=== PATIENT | female | born 1985 | race American Indian/Alaskan Native ===

== ENCOUNTER 2018-05-12 14:43 | Observation (INO) | payer MEDICAID ==
[2018-05-12] MEDS ORDERED: LACTATED RINGERS 1,000 ML IV ONE (15:00)
[2018-05-12] MEDS ORDERED: TYLENOL PO ONE (15:00)
[2018-05-12] MEDS ORDERED: BRETHINE SUB-Q ONE ×2 (17:00→17:19)
[2018-05-12 17:08] LABS: Blood,Urine Negative (Negative); Color,Urine Straw (Yellow); Mucus,Urine Few /HPF; Protein,Urine <15 mg/dL mg/dL (Negative); Urobilinogen,Urine < 2.0 mg/dL (<2.0); WBC,Urine < 1.0 /HPF (0.0-6.0)
[2018-05-12] MEDS ORDERED: LACTATED RINGERS 1,000 ML IV SCH ×2 (18:00)
[2018-05-12] MEDS ORDERED: CELESTONE SOLUSPAN IM ONE (18:00)
--- NOTE | 2018-05-12 18:08 | History and Physical Report ---
History of Present Illness Date of admission: 05/12/18 17:49 Chief complaint: contractions History of delivery 30 weeks, PPROM 2005 History of present illness: 32y 31 2/7wks transferred from clinic due to contraction. She has a history of rupture of membranes and delivery at 30 weeks in 2005. Today she denies loss of fluid, vaginal bleeding and has good movement. Past History - Obstetrical History : 5 Medications and Allergies Allergies Allergy/AdvReac Type Severity Reaction Status Date / Time No Known Allergies Allergy Verified 05/12/18 14:51 Home Medications Medication Instructions Recorded Confirmed Last Taken Type Ferrous Sulfate [Feosol] 325 mg PO QDAY 05/12/18 05/12/18 05/12/18 09:00 History 1 Vit-Fe Fumar-FA [ 1 tab PO QDAY 05/12/18 05/12/18 05/12/18 09: 00 History Vitamin] 1 Progesterone [Progesterone in Oil] 50 mg IM QWEEK 05/12/18 05/12/18 05/06/18 History glyBURIDE [Diabeta] 2.5 mg PO DAILY 05/12/18 05/12/18 05/11/18 21:00 History 1 Active Meds: Active Medications Betamethasone Acet/Betameth SodPhos (Celestone Soluspan) 12 mg IM ONCE ONE Stop: 05/13/18 16:01 Lactated Ringer's (Lactated Ringers) 1,000 mls @ 125 mls/hr IV DIRECT PAULINO Lactated Ringer's (Lactated Ringers) 1,000 mls @ 125 mls/hr IV DIRECT PAULINO Lactated Ringer's (Lactated Ringers) 500 mls @ 999 mls/hr IV BOLUS ONE Stop: 05/12/18 19:30 - Vital Signs Vital signs: Vital Signs Pulse BP Pulse Ox 97 H 129/69 99 05/12/18 15:05 05/12/18 15:05 05/12/18 15:05 Temp Pulse Resp BP Pulse Ox 98 F 123 H 24 126/72 98 05/12/18 17:32 05/12/18 18:03 05/12/18 17:32 05/12/18 17:32 05/12/18 18:03 Results All other labs normal. Assessment and Plan - Patient Problems (1) contractions Current Visit: Yes Status: Acute (2) 31 weeks gestation of Current Visit: Yes Status: Acute (3) History of delivery Current Visit: Yes Status: Acute
[2018-05-12] MEDS ORDERED: LACTATED RINGERS 500 ML IV ONE (19:00)
[2018-05-12] MEDS: PEPCID PO SCH (20:34)
--- NOTE | 2018-05-13 08:50 | Progress Note ---
Assessment and Plan A: 32-year-old at 32+6 weeks by LMP 07/02/18 here for contractions -Cat 1 tracing Issues: -Hx of PTD at 32 wks -On 17-HP, next dose due today -GDM 2 on glyburide -s/p BMZ # 1 (next due today) -FFn obtained in office yesterday (no result yet) -Chart history of vasa previa, recorded as resolved at 27 weeks P: -Sono for cervical length and re-assess vasa previa -Start sliding scale insulin and her Glyburide -Complete steroid shot -17 hp shot today -Disposition after results available - Patient Problems (1) 32 weeks gestation of Current Visit: Yes Status: Acute (2) History of delivery Current Visit: Yes Status: Acute (3) contractions Current Visit: Yes Status: Acute (4) Gestational diabetes mellitus (GDM) affecting Current Visit: Yes Status: Acute Subjective - Subjective Date of service: 05/13/18 Principal diagnosis: IUP at 32+6 wks, PTL Interval history: Assumed care of above. She is a 32 y/o at 32+6 wks admitted for contractions. She's currently daniel on the monitor and can feel them, no vaginal bleeding no loss of fluid plus movement. Patient reports: new complaints, movement normal, contractions, no loss of fluid, no vaginal bleeding Objective - Vital Signs Vital Signs: Vital Signs - 12hr 05/12/18 05/12/18 05/12/18 20:49 20:54 20:59 Temperature Pulse Rate 100 H 112 H 117 H Respiratory Rate Blood Pressure Blood Pressure [Right] O2 Sat by Pulse 98 99 98 Oximetry 05/12/18 05/12/18 05/12/18 21:04 21:11 21:16 Temperature Pulse Rate 111 H 115 H 113 H Respiratory Rate Blood Pressure Blood Pressure [Right] O2 Sat by Pulse 100 98 99 Oximetry 05/12/18 05/12/18 05/12/18 21:21 21:26 21:31 Temperature Pulse Rate 104 H 104 H 110 H Respiratory Rate Blood Pressure Blood Pressure [Right] O2 Sat by Pulse 98 99 97 Oximetry 05/12/18 05/12/18 05/12/18 21:36 21:41 21:46 Temperature Pulse Rate 110 H 110 H 109 H Respiratory Rate Blood Pressure Blood Pressure [Right] O2 Sat by Pulse 97 97 99 Oximetry 05/12/18 05/12/18 05/12/18 21:51 21:56 22:01 Temperature Pulse Rate 110 H 113 H 109 H Respiratory Rate Blood Pressure Blood Pressure [Right] O2 Sat by Pulse 97 96 98 Oximetry 05/12/18 05/12/18 05/12/18 22:06 22:11 22:16 Temperature Pulse Rate 113 H 111 H 114 H Respiratory Rate Blood Pressure Blood Pressure [Right] O2 Sat by Pulse 96 97 98 Oximetry 05/12/18 05/12/18 05/12/18 22:21 22:26 22:38 Temperature Pulse Rate 113 H 118 H Respiratory Rate Blood Pressure Blood Pressure [Right] O2 Sat by Pulse 96 97 76 L Oximetry 05/12/18 05/12/18 05/12/18 22:43 22:48 22:53 Temperature Pulse Rate 103 H 109 H 106 H Respiratory Rate Blood Pressure Blood Pressure [Right] O2 Sat by Pulse 100 100 100 Oximetry 05/12/18 05/12/18 05/12/18 22:58 23:03 23:08 Temperature Pulse Rate 106 H 113 H 109 H Respiratory Rate Blood Pressure Blood Pressure [Right] O2 Sat by Pulse 99 98 100 Oximetry 05/12/18 05/12/18 05/12/18 23:13 23:18 23:23 Temperature Pulse Rate 111 H 113 H 104 H Respiratory Rate Blood Pressure Blood Pressure [Right] O2 Sat by Pulse 98 99 99 Oximetry 05/12/18 05/12/18 05/12/18 23:27 23:28 23:33 Temperature Pulse Rate 104 H 113 H 108 H Respiratory Rate Blood Pressure 121/72 Blood Pressure [Right] O2 Sat by Pulse 99 99 Oximetry 05/12/18 05/12/18 05/12/18 23:38 23:43 23:48 Temperature Pulse Rate 107 H 106 H 103 H Respiratory Rate Blood Pressure Blood Pressure [Right] O2 Sat by Pulse 99 98 98 Oximetry 05/12/18 05/12/18 05/13/18 23:53 23:58 00:03 Temperature Pulse Rate 103 H 104 H 108 H Respiratory Rate Blood Pressure Blood Pressure [Right] O2 Sat by Pulse 98 98 98 Oximetry 05/13/18 05/13/18 05/13/18 00:08 00:13 00:18 Temperature Pulse Rate 108 H 103 H 109 H Respiratory Rate Blood Pressure Blood Pressure [Right] O2 Sat by Pulse 97 98 97 Oximetry 05/13/18 05/13/18 05/13/18 00:23 00:28 01:15 Temperature Pulse Rate 114 H 100 H 105 H Respiratory Rate Blood Pressure Blood Pressure [Right] O2 Sat by Pulse 97 98 98 Oximetry 05/13/18 05/13/18 05/13/18 01:20 01:25 01:30 Temperature Pulse Rate 112 H 106 H 106 H Respiratory Rate Blood Pressure Blood Pressure [Right] O2 Sat by Pulse 99 99 98 Oximetry 05/13/18 05/13/18 05/13/18 01:35 01:40 01:45 Temperature Pulse Rate 115 H 115 H 114 H Respiratory Rate Blood Pressure Blood Pressure [Right] O2 Sat by Pulse 98 99 99 Oximetry 05/13/18 05/13/18 05/13/18 01:50 01:55 02:00 Temperature Pulse Rate 114 H 101 H 105 H Respiratory Rate Blood Pressure Blood Pressure [Right] O2 Sat by Pulse 99 99 99 Oximetry 05/13/18 05/13/18 05/13/18 02:05 02:10 02:15 Temperature Pulse Rate 105 H 110 H 109 H Respiratory Rate Blood Pressure Blood Pressure [Right] O2 Sat by Pulse 98 97 97 Oximetry 05/13/18 05/13/18 05/13/18 02:20 02:25 02:30 Temperature Pulse Rate 100 H 102 H 104 H Respiratory Rate Blood Pressure Blood Pressure [Right] O2 Sat by Pulse 98 97 96 Oximetry 05/13/18 05/13/18 05/13/18 02:35 02:40 02:45 Temperature Pulse Rate 103 H 108 H 109 H Respiratory Rate Blood Pressure Blood Pressure [Right] O2 Sat by Pulse 96 96 96 Oximetry 05/13/18 05/13/18 05/13/18 02:48 02:50 02:55 Temperature Pulse Rate 122 H 105 H 105 H Respiratory Rate Blood Pressure Blood Pressure [Right] O2 Sat by Pulse 94 97 98 Oximetry 05/13/18 05/13/18 05/13/18 03:00 03:05 03:10 Temperature Pulse Rate 102 H 105 H 107 H Respiratory Rate Blood Pressure Blood Pressure [Right] O2 Sat by Pulse 97 97 98 Oximetry 05/13/18 05/13/18 05/13/18 03:15 03:20 03:25 Temperature Pulse Rate 107 H 111 H 112 H Respiratory Rate Blood Pressure Blood Pressure [Right] O2 Sat by Pulse 98 98 97 Oximetry 05/13/18 05/13/18 05/13/18 03:30 03:35 03:40 Temperature Pulse Rate 109 H 112 H 112 H Respiratory Rate Blood Pressure Blood Pressure [Right] O2 Sat by Pulse 98 98 98 Oximetry 05/13/18 05/13/18 05/13/18 03:45 03:50 03:55 Temperature Pulse Rate 117 H 111 H 115 H Respiratory Rate Blood Pressure Blood Pressure [Right] O2 Sat by Pulse 96 98 98 Oximetry 05/13/18 05/13/18 05/13/18 04:00 04:05 04:15 Temperature Pulse Rate 104 H 109 H 110 H Respiratory Rate Blood Pressure Blood Pressure [Right] O2 Sat by Pulse 98 98 90 Oximetry 05/13/18 05/13/18 05/13/18 04:16 04:21 04:26 Temperature Pulse Rate 102 H 107 H 106 H Respiratory Rate Blood Pressure Blood Pressure [Right] O2 Sat by Pulse 100 98 94 Oximetry 05/13/18 05/13/18 05/13/18 04:31 04:36 04:41 Temperature Pulse Rate 104 H 110 H 109 H Respiratory Rate Blood Pressure Blood Pressure [Right] O2 Sat by Pulse 100 98 99 Oximetry 05/13/18 05/13/18 05/13/18 04:46 04:51 04:56 Temperature Pulse Rate 113 H 97 H 103 H Respiratory Rate Blood Pressure Blood Pressure [Right] O2 Sat by Pulse 100 98 98 Oximetry 05/13/18 05/13/18 05/13/18 05:01 05:06 05:11 Temperature Pulse Rate 107 H 104 H 105 H Respiratory Rate Blood Pressure Blood Pressure [Right] O2 Sat by Pulse 98 97 96 Oximetry 05/13/18 05/13/18 05/13/18 05:16 05:21 05:26 Temperature Pulse Rate 105 H 106 H 108 H Respiratory Rate Blood Pressure Blood Pressure [Right] O2 Sat by Pulse 96 96 96 Oximetry 05/13/18 05/13/18 05/13/18 05:31 05:36 05:41 Temperature Pulse Rate 109 H 105 H 107 H Respiratory Rate Blood Pressure Blood Pressure [Right] O2 Sat by Pulse 96 96 98 Oximetry 0805/13/18 05/13/18 05:46 05:51 05:56 Temperature Pulse Rate 111 H 112 H 110 H Respiratory Rate Blood Pressure Blood Pressure [Right] O2 Sat by Pulse 99 98 99 Oximetry 05/13/18 05/13/18 05/13/18 06:01 06:06 06:11 Temperature Pulse Rate 111 H 112 H 98 H Respiratory Rate Blood Pressure Blood Pressure [Right] O2 Sat by Pulse 99 98 100 Oximetry 05/13/18 05/13/18 05/13/18 06:16 06:21 06:26 Temperature Pulse Rate 107 H 111 H 108 H Respiratory Rate Blood Pressure Blood Pressure [Right] O2 Sat by Pulse 98 99 99 Oximetry 05/13/18 05/13/18 05/13/18 06:31 06:36 06:41 Temperature Pulse Rate 107 H 103 H 107 H Respiratory Rate Blood Pressure Blood Pressure [Right] O2 Sat by Pulse 98 98 98 Oximetry 05/13/18 05/13/18 05/13/18 06:46 06:51 06:56 Temperature Pulse Rate 104 H 105 H 105 H Respiratory Rate Blood Pressure Blood Pressure [Right] O2 Sat by Pulse 98 98 98 Oximetry 05/13/18 05/13/18 05/13/18 07:01 07:06 07:14 Temperature Pulse Rate 108 H 108 H 107 H Respiratory Rate Blood Pressure Blood Pressure [Right] O2 Sat by Pulse 99 100 83 L Oximetry 05/13/18 05/13/18 05/13/18 07:15 07:19 07:24 Temperature 96.7 F L Pulse Rate 107 H 107 H 109 H Respiratory 24 Rate Blood Pressure 137/83 Blood Pressure 137/83 [Right] O2 Sat by Pulse 100 100 100 Oximetry 05/13/18 05/13/18 05/13/18 07:29 07:34 07:39 Temperature Pulse Rate 106 H 116 H 113 H Respiratory Rate Blood Pressure Blood Pressure [Right] O2 Sat by Pulse 100 100 99 Oximetry 05/13/18 05/13/18 05/13/18 07:40 07:44 07:49 Temperature Pulse Rate 119 H 118 H 118 H Respiratory Rate Blood Pressure Blood Pressure [Right] O2 Sat by Pulse 89 100 99 Oximetry 05/13/18 05/13/18 05/13/18 07:54 07:59 08:04 Temperature Pulse Rate 122 H 118 H 118 H Respiratory Rate Blood Pressure Blood Pressure [Right] O2 Sat by Pulse 96 97 99 Oximetry 05/13/18 05/13/18 05/13/18 08:09 08:14 08:19 Temperature Pulse Rate 113 H 108 H 114 H Respiratory Rate Blood Pressure Blood Pressure [Right] O2 Sat by Pulse 99 100 99 Oximetry 05/13/18 05/13/18 05/13/18 08:24 08:29 08:34 Temperature Pulse Rate 118 H 115 H 115 H Respiratory Rate Blood Pressure Blood Pressure [Right] O2 Sat by Pulse 100 99 99 Oximetry 05/13/18 08:39 Temperature Pulse Rate 113 H Respiratory Rate Blood Pressure Blood Pressure [Right] O2 Sat by Pulse 100 Oximetry - Exam Abdomen: Present: normal appearance, soft. Absent: distention, tenderness, guarding, rigidity FHR: category 1 Cervical Dilatation: 1 (Per RN exam) - Labs Labs: Laboratory Results - last 24 hr 05/12/18 05/12/18 14:52 16:14 POC Glucose 103 Urine Color Straw Urine Turbidity Clear Urine pH 7.0 Ur Specific [place] 1.009 Urine Protein <15 mg/dl Urine Glucose (UA) Negative Urine Ketones Negative Urine Blood Negative Urine Nitrite Negative Urine Urobilinogen < 2.0 Ur Leukocyte Esterase Negative Urine WBC (Auto) < 1.0 Urine RBC (Auto) 1.0 Urine Mucus Few
[2018-05-13] MEDS ORDERED: D50W (25GM) Syringe IV PRN (08:51)
[2018-05-13] MEDS ORDERED: DIABETA PO SCH (09:00)
--- NOTE | 2018-05-13 09:49 | Ultrasound Report ---
LIMITED OB ULTRASOUND: Questionable vasa previa. Gestation: [place] Position: Cephalic KIP = 14.7 cm Placenta: Anterior Placental Grade: 1 Heart Rate: 149 BPM Cervical length: 3.7 cm (Normal > 3 cm) Comment: No evidence of vasa previa.
[2018-05-13] MEDS ORDERED: [UNRECOGNIZED DRUG - OTHER] IM SCH (10:00)
[2018-05-13] MEDS: PEPCID PO SCH (10:36)
[2018-05-13] MEDS: HumuLIN R SUB-Q SCH ×2 (10:48→16:42)
[2018-05-13 14:57] VITALS: BP 126/65
[2018-05-13] MEDS ORDERED: PROCARDIA*For Tocolysis only PO SCH (15:00)
[2018-05-13] MEDS ORDERED: CELESTONE SOLUSPAN IM ONE (16:00)
--- NOTE | 2018-05-13 18:09 | Event Note ---
Date: 05/13/18 Patient feeling much better with resolution of her contractions. She has ambulated for over an hour and feels fine. Cervical length is over 3 is category 1 She has received a second dose of steroids and her weekly shot 17 HP Plan is to discharge home she will see her primary care providers on Wednesday
--- NOTE | 2018-05-13 18:13 | Discharge Summary ---
Providers - Providers Date of Admission: 05/12/18 17:49 Date of discharge: 05/13/18 Attending physician: SARBJIT LOWERY MD Primary care physician: SARBJIT LOWERY MD Hospitalization Reason for admission: observation, labor Discharge diagnosis: other (IUP at 32+6 weeks with contractions now resolved) Hospital course: A: 32-year-old at 32+6 weeks by LMP 07/02/18 admitted here for contractions -Cat 1 tracing Issues: -Hx of PTD at 32 wks -On 17-HP, next dose due today -GDM 2 on glyburide -s/p BMZ # 1 (next due today) -FFn obtained in office yesterday (no result yet) -Chart history of vasa previa, recorded as resolved at 27 weeks Patient was observed on the floor. She completed her steroid shot and receive the 17 HP shot Her cervical length was 3.7, cephalic She received Procardia 10 mg 3 times a day with resolution of her contractions She is discharged home in stable condition Condition at discharge: Good Disposition: DC-01 TO HOME OR SELFCARE - Discharge Diagnoses (1) 32 weeks gestation of Status: Acute (2) History of delivery Status: Acute (3) contractions Status: Acute (4) Gestational diabetes mellitus (GDM) affecting Status: Acute Plan - Discharge Medications Prescriptions: NIFEdipine [Procardia] 10 mg PO TID #30 capsule - Provider Discharge Summary Activity: no sex for 6 weeks, no heavy lifting 4 weeks, no strenuous exercise Diet: routine Additional instructions: [] Smoking cessation referral if applicable(refer to patient education folder for contact #) [] Refer to [facility] Booklet Call your doctor immediately for: * Fever > 100.5 * Heavy vaginal bleeding ( >1 pad per hour) * Severe persistent headache * Shortness of breath * Reddened, hot, painful area to leg or breast * Drainage or odor from incision. * Keep incision clean and dry at all times and follow doctor's instructions regarding bathing/showering - Follow up plan Follow up: SARBJIT LOWERY MD [Primary Care Provider] - 7 Days NICHO REYNA MD [Staff Physician] - 05/17/18
== END 2018-05-13 18:58 | disposition home or self-care (01) ==
LOC: TRG 14:43 → LD 17:49
PROVIDERS: ADMIT Obstetrics & Gynecology; ATTEND Obstetrics & Gynecology
DX: O60.03 Preterm labor without delivery, third trimester (principal); O24.415 Gestational diabetes mellitus in pregnancy, controlled by oral hypoglycemic drugs; Z3A.32 32 weeks gestation of pregnancy
CPT/HCPCS: 59025; 76815; 81001; 82962; 87116; 96372; G0378; J0702; J3105; J7120; 96360

== ENCOUNTER 2018-05-15 09:37 | Outpatient (CLI) | payer MEDICAID ==
[2018-05-15 11:30] LABS: Bilirubin,Urine NEG (Negative); Blood,Urine NEG (Negative); Color,Urine Yellow (Yellow); Hyaline Casts,Urine 1 /LPF; Mucus,Urine FEW /HPF; Protein,Urine <15 mg/dL mg/dL (Negative); Urobilinogen,Urine < 2.0 mg/dL (<2.0)
[2018-05-15 11:38] LABS: Amphetamine Screen,Urine PRESUMPTIVE NEGATIVE; Benzodiazepines Screen,Urine PRESUMPTIVE NEGATIVE; Cocaine Screen,Urine PRESUMPTIVE NEGATIVE; Methadone Screen,Urine PRESUMPTIVE NEGATIVE; Opiate Screen,Urine PRESUMPTIVE NEGATIVE
[2018-05-15 11:50] LABS: Cannabinoid Screen,Urine PRESUMPTIVE POSITIVE
[2018-05-15] MEDS ORDERED: LACTATED RINGERS 500 ML IV ONE (12:00)
[2018-05-15] MEDS: BRETHINE SUB-Q SCH ×3 (13:30→18:05)
--- NOTE | 2018-05-15 13:55 | Ultrasound Report ---
FINAL REPORT EXAM: US OB BPP WO NON-STRESS HISTORY: decrease movement TECHNIQUE: Biophysical profile and limited OB ultrasound. PRIORS: None currently available. FINDINGS: Single fetus is identified. Presentation: Breech. heart rate: 149 BPM KIP: 12.8 cm. Within normal limits. Breathin Gross Body Movements: 2 Tone: 2 Qualitative AFV: 2 IMPRESSION: Biophysical profile score 8/8. Single live intrauterine .
--- NOTE | 2018-05-15 13:56 | Ultrasound Report ---
FINAL REPORT EXAM: US OB LIMITED HISTORY: kip TECHNIQUE: Biophysical profile and limited OB ultrasound. PRIORS: None currently available. FINDINGS: Single fetus is identified. Presentation: Breech. heart rate: 149 BPM KIP: 12.8 cm. Within normal limits. Breathin Gross Body Movements: 2 Tone: 2 Qualitative AFV: 2 IMPRESSION: Biophysical profile score 8/8. Single live intrauterine .
[2018-05-15] MEDS ORDERED: FLAGYL PO ONE (15:00)
[2018-05-15 18:40] VITALS: BP 118/68
--- NOTE | 2018-05-15 18:59 | Progress Note ---
Assessment and Plan A: at 31 weeks, 5 days gestation. contractions, resolved. BPP 10/10; normal KIP. P: Discharge patient home with rest and pelvic rest precautions. Patient to take Procardia 10 mg po every 6 hours at home. Patient to follow up tomorrow at [facility] and at [facility] on 05/17/18. Subjective - Subjective Date of service: 05/15/18 Principal diagnosis: Threatened labor; decreased movement Interval history: 32 year old presents to L&D triage at 31 weeks, 5 days gestation (EDC ) complaining of decreased movement since last night. Patient denies leaking of fluid or vaginal bleeding. Patient reports she has had intermittent contractions for the past few weeks. She was here last week in L&D and received round of Betamethasone. Patient has Procardia 10 mg every 6 hours at home; she states she has been taking it for the most part. She also receives weekly Huyen injection at home and has been seeing [facility] and [facility] for care. No records available in L&D today. Patient denies falls or abdominal trauma. Patient states she recently stopped smoking marijuana. Patient denies recent intercourse. Patient admits to not drinking much water at home; she admits to not eating regularly. She denies depression and she states she is not being abused by anyone. She states she feels safe in her current relationship. 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 Patient denies urinary symptoms. She denies vaginal discharge. She state she had FFN done last week in the office but has not yet been told the result. Patient reports she has gestational diabetes controlled on Glyburide. She states she is following ADA diet. Patient is well appearing, alert, oriented, NAD. Afebrile. VSS. Abdomen soft, nontender. Mild brief contractions noted on monitor, resolved with IV hydration and SQ Brethine. NST is reactive. Patient states she now feels active movement. BPP 8/8. KIP 12.8 cm. GC/CT culture done. Pt. given first dose of Flagyl for BV and the following was called in to [facility] on [address]: Flagyl 500mg, #14, 1 po BID. Cervical exam is as follows: FT/thick/high/ posterior/firm. UA was negative and UDS showed marijuana. Discussed with patient need to stop smoking/using marijuana right away. Discussed with patient need to increase her water intake to 8 cups per day and to eat healthy meals regularly. Discussed with patient need to avoid intercourse and avoid prolonged standing. Discussed with patient need to keep her follow up appointment with [facility] this Thursday 05/17 and also to go to [facility] office tomorrow. Consulted with Dr. James re: the above. Dr. James states it is OK for patient to be discharged home and for her to take Procardia 10 mg po every 6 hours at home (pt. already has Procardia at home and states she will take this) . Advised pt. re: importance of OB and [facility] follow up this week. Pt. voiced understanding. Patient reports: contractions, no loss of fluid, no vaginal bleeding Objective - Vital Signs Vital Signs: Vital Signs - 12hr 05/15/18 05/15/18 05/15/18 09:52 09:53 09:55 Temperature 98.8 F Pulse Rate 100 H 88 88 Respiratory 18 Rate Blood Pressure 125/68 Blood Pressure 125/68 [Left] O2 Sat by Pulse 100 Oximetry 05/15/18 05/15/18 05/15/18 09:57 10:02 10:07 Temperature Pulse Rate 93 H 90 93 H Respiratory Rate Blood Pressure Blood Pressure [Left] O2 Sat by Pulse 99 98 99 Oximetry 05/15/18 05/15/18 05/15/18 10:12 10:17 10:22 Temperature Pulse Rate 98 H 104 H 96 H Respiratory Rate Blood Pressure Blood Pressure [Left] O2 Sat by Pulse 98 100 98 Oximetry 05/15/18 05/15/18 05/15/18 10:27 10:32 10:37 Temperature Pulse Rate 99 H 97 H 96 H Respiratory Rate Blood Pressure Blood Pressure [Left] O2 Sat by Pulse 96 98 98 Oximetry 05/15/18 05/15/18 05/15/18 10:43 10:47 10:52 Temperature Pulse Rate 94 H 95 H 103 H Respiratory Rate Blood Pressure Blood Pressure [Left] O2 Sat by Pulse 98 99 98 Oximetry 05/15/18 05/15/18 05/15/18 10:57 11:02 11:07 Temperature Pulse Rate 99 H 97 H 99 H Respiratory Rate Blood Pressure Blood Pressure [Left] O2 Sat by Pulse 98 98 98 Oximetry 05/15/18 05/15/18 05/15/18 11:12 11:17 11:22 Temperature Pulse Rate 96 H 98 H 86 Respiratory Rate Blood Pressure Blood Pressure [Left] O2 Sat by Pulse 99 98 100 Oximetry 05/15/18 05/15/18 05/15/18 14:03 14:09 14:14 Temperature Pulse Rate 118 H 113 H 117 H Respiratory Rate Blood Pressure Blood Pressure [Left] O2 Sat by Pulse 100 100 99 Oximetry 05/15/18 05/15/18 05/15/18 14:19 14:23 14:29 Temperature Pulse Rate 112 H 112 H 111 H Respiratory Rate Blood Pressure Blood Pressure [Left] O2 Sat by Pulse 99 99 100 Oximetry 05/15/18 05/15/18 05/15/18 14:34 14:39 14:44 Temperature Pulse Rate 106 H 109 H 107 H Respiratory Rate Blood Pressure Blood Pressure [Left] O2 Sat by Pulse 99 99 100 Oximetry 05/15/18 05/15/18 05/15/18 14:49 14:54 14:59 Temperature Pulse Rate 107 H 116 H 113 H Respiratory Rate Blood Pressure Blood Pressure [Left] O2 Sat by Pulse 99 100 100 Oximetry 05/15/18 05/15/18 05/15/18 15:03 15:09 15:10 Temperature Pulse Rate 106 H 108 H 118 H Respiratory Rate Blood Pressure Blood Pressure [Left] O2 Sat by Pulse 98 100 92 Oximetry 05/15/18 05/15/18 05/15/18 15:14 15:19 15:24 Temperature Pulse Rate 113 H 109 H 111 H Respiratory Rate Blood Pressure Blood Pressure [Left] O2 Sat by Pulse 99 98 98 Oximetry 05/15/18 05/15/18 05/15/18 15:29 15:34 15:38 Temperature Pulse Rate 113 H 109 H 115 H Respiratory Rate Blood Pressure Blood Pressure [Left] O2 Sat by Pulse 98 99 98 Oximetry 05/15/18 05/15/18 05/15/18 15:44 15:49 15:54 Temperature Pulse Rate 111 H 114 H 108 H Respiratory Rate Blood Pressure Blood Pressure [Left] O2 Sat by Pulse 98 98 98 Oximetry 05/15/18 05/15/18 05/15/18 15:59 16:07 16:13 Temperature Pulse Rate 115 H 104 H 101 H Respiratory Rate Blood Pressure Blood Pressure [Left] O2 Sat by Pulse 98 100 99 Oximetry 05/15/18 05/15/18 05/15/18 16:18 16:23 16:28 Temperature Pulse Rate 120 H 110 H 130 H Respiratory Rate Blood Pressure Blood Pressure [Left] O2 Sat by Pulse 100 100 100 Oximetry 05/15/18 05/15/18 05/15/18 16:33 16:38 16:43 Temperature Pulse Rate 119 H 126 H 114 H Respiratory Rate Blood Pressure Blood Pressure [Left] O2 Sat by Pulse 100 100 99 Oximetry 05/15/18 05/15/18 05/15/18 16:48 16:53 16:58 Temperature Pulse Rate 123 H 120 H 121 H Respiratory Rate Blood Pressure Blood Pressure [Left] O2 Sat by Pulse 99 99 99 Oximetry 05/15/18 05/15/18 05/15/18 17:03 17:08 17:13 Temperature Pulse Rate 120 H 122 H 112 H Respiratory Rate Blood Pressure Blood Pressure [Left] O2 Sat by Pulse 99 98 98 Oximetry 05/15/18 05/15/18 05/15/18 17:18 17:23 17:28 Temperature Pulse Rate 112 H 112 H 112 H Respiratory Rate Blood Pressure Blood Pressure [Left] O2 Sat by Pulse 98 98 97 Oximetry 05/15/18 05/15/18 05/15/18 17:33 17:37 17:43 Temperature Pulse Rate 110 H 109 H 112 H Respiratory Rate Blood Pressure Blood Pressure [Left] O2 Sat by Pulse 99 98 97 Oximetry 05/15/18 05/15/18 05/15/18 17:48 17:53 17:58 Temperature Pulse Rate 104 H 107 H 104 H Respiratory Rate Blood Pressure Blood Pressure [Left] O2 Sat by Pulse 99 98 98 Oximetry 05/15/18 05/15/18 05/15/18 18:03 18:08 18:13 Temperature Pulse Rate 106 H 110 H 110 H Respiratory Rate Blood Pressure Blood Pressure [Left] O2 Sat by Pulse 99 98 100 Oximetry 05/15/18 05/15/18 05/15/18 18:15 18:17 18:23 Temperature 98.6 F Pulse Rate 118 H 130 H 123 H Respiratory 16 Rate Blood Pressure 118/68 Blood Pressure 118/68 [Left] O2 Sat by Pulse 100 99 98 Oximetry 05/15/18 18:28 Temperature Pulse Rate 129 H Respiratory Rate Blood Pressure Blood Pressure [Left] O2 Sat by Pulse 99 Oximetry - Exam Abdomen: Present: normal appearance, soft. Absent: distention, tenderness, guarding, rigidity Uterus: Present: normal, fundal height above umbilicus. Absent: tenderness FHR: category 1 Uterine Contraction Monitor Mode: External Cervical Dilatation: 0 Cervical Effacement Percentage: 0 station: High Uterine Contraction Pattern: Irregular Uterine Contraction Intensity: Mild Extremities: normal - Labs Labs: Laboratory Results - last 24 hr 05/15/18 05/15/18 11:13 11:14 Urine Color Yellow Urine Turbidity Clear Urine pH 7.0 Ur Specific [place] 1.010 Urine Protein <15 mg/dl Urine Glucose (UA) Neg Urine Ketones Neg Urine Blood Neg Urine Nitrite Neg Urine Bilirubin Neg Urine Urobilinogen < 2.0 Ur Leukocyte Esterase Neg Urine WBC (Auto) 1.0 Urine RBC (Auto) 1.0 U Epithel Cells (Auto) < 1.0 Hyaline Casts 1 Urine Mucus Few Urine Opiates Screen Presumptive negative Urine Methadone Screen Presumptive negative Ur Barbiturates Screen Presumptive negative Ur Phencyclidine Scrn Presumptive negative Ur Amphetamines Screen Presumptive negative U Benzodiazepines Scrn Presumptive negative Urine Cocaine Screen Presumptive negative U Marijuana (THC) Screen Presumptive positive Drugs of Abuse Note Disclamer
== END 2018-05-15 19:17 | disposition home or self-care (01) ==
LOC: TRG 09:37
PROVIDERS: ATTEND Obstetrics & Gynecology
DX: O47.03 False labor before 37 completed weeks of gestation, third trimester (principal); Z3A.31 31 weeks gestation of pregnancy
CPT/HCPCS: 59025; 76815; 76819; 80307; 81001; 96360; 96361; 96372; J3105; J7120; 87591

== ENCOUNTER 2018-06-16 07:51 | Outpatient (CLI) | payer MEDICAID ==
[2018-06-16] MEDS ORDERED: LACTATED RINGERS 500 ML IV ONE (08:30)
[2018-06-16 08:33] VITALS: BP 113/74
[2018-06-16 08:47] LABS: Bilirubin,Urine NEG (Negative); Blood,Urine NEG (Negative); Color,Urine Yellow (Yellow); Mucus,Urine FEW /HPF; Protein,Urine <15 mg/dL mg/dL (Negative)
== END 2018-06-16 13:51 | disposition home or self-care (01) ==
LOC: TRG 07:51
PROVIDERS: ATTEND Obstetrics & Gynecology
DX: O47.03 False labor before 37 completed weeks of gestation, third trimester (principal); Z3A.37 37 weeks gestation of pregnancy
CPT/HCPCS: 59025; 81001; 82962; J7120

== ENCOUNTER 2018-06-25 14:10 | Inpatient (IN) | payer MEDICAID ==
--- NOTE | 2018-06-25 17:11 | Ultrasound Report ---
FINAL REPORT EXAM: US OB LIMITED HISTORY: decreased movement TECHNIQUE: Transabdominal grayscale, color flow and M-mode imaging for the purpose of evaluation of KIP. Comparison: Biophysical profile also performed today FINDINGS: There is demonstration of a single intrauterine gestation in cephalic position. KIP is measured at 4.1 centimeters. heart rate is measured at 137 beats per minute. IMPRESSION: 1. Single intrauterine gestation in cephalic position with heart rate measured at 137 beats per minute. 2. KIP is measured at 4.1 centimeters.
--- NOTE | 2018-06-25 17:14 | Ultrasound Report ---
FINAL REPORT EXAM: US OB BPP WO NON-STRESS HISTORY: decreased movement TECHNIQUE: Transabdominal Grayscale, color flow and M-mode imaging was performed for the purpose of evaluation of biophysical profile. FINDINGS: There is demonstration of a single intrauterine gestation in cephalic position. heart rate is measured at 141 beats per minute. Biophysical profile score is as follows: Fluid score 2 points Breathing score 2 points Movement score 0 points Tone score 0 point IMPRESSION: 1. Single intrauterine gestation in cephalic position with heart rate measured at 141 beats per minute. 2. Biophysical profile score 4/8
[2018-06-25] MEDS ORDERED: BRETHINE SUB-Q PRN (17:52)
[2018-06-25] MEDS ORDERED: POLYCILLIN/NS 2 GM/100 ML 2 GM/100 ML BAG IV ONE (17:52)
[2018-06-25] MEDS ORDERED: PITOCin/NS 20 UNIT/1000ML DRIP 20 UNITS/1,000 ML BAG IV SCH (18:00)
[2018-06-25] MEDS ORDERED: NACL 0.9% 1000 ML 1,000 ML IV ONE (18:06)
--- NOTE | 2018-06-25 18:15 | History and Physical Report ---
History of Present Illness Date of examination: 06/25/18 Date of admission: 06/25/18 14:11 Chief complaint: Decreased movement since yesterday. History of present illness: 32 year old female presented to labor and delivery at 39 weeks gestation complaining of decreased movement since yesterday. Patient also reports frequent contractions but states she does not know if she is in labor. Patient denies vaginal bleeding. Patient reports she has had a mucous type discharge for past 3 days; Patient denies fever, chills, malaise. Patient has received care at [facility]. LMP 09/25/17. EDC . EGA 39 weeks. US shows BPP 4/8 and oligohydramnios. 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 labs are as follows: O+, antibody screen negative, rubella immune, hepatitis B surface antigen negative, RPR nonreactive, vitamin D deficient, + HSV 2 serology, elevated one hour sugar test and abnormal 3 hour OGTT, no result on chart for GC/CT or GBS. Past History Past Medical History: other (gestational diabetes during this ) Past Surgical History: no surgical history [facility] History: herpes. denies: cancer, chlamydia, fibroids, gonorrhea, hepatitis B, hepatitis C, HIV, syphilis, trichomonas Family/Genetic History: diabetes Social history: lives with family, full code. denies: alcohol abuse, prescription drug abuse, IV drug use - Obstetrical History Expected Date of Delivery: 07/02/18 Actual Gestation: 39 Week(s) 0 Day(s) : 5 Para: 2 Medications and Allergies Allergies Allergy/AdvReac Type Severity Reaction Status Date / Time No Known Allergies Allergy Verified 05/12/18 14:51 Home Medications Medication Instructions Recorded Confirmed Last Taken Type Ferrous Sulfate [Feosol] 325 mg PO QDAY 05/12/18 06/25/18 05/12/18 09:00 History 1 Vit-Fe Fumar-FA [ 1 tab PO QDAY 05/12/18 06/25/18 05/12/18 09: 00 History Vitamin] 1 Progesterone [Progesterone in Oil] 50 mg IM QWEEK 05/12/18 06/25/18 05/06/18 History glyBURIDE [Diabeta] 2.5 mg PO DAILY 05/12/18 06/25/18 05/11/18 21:00 History 1 NIFEdipine [Procardia] 10 mg PO TID #30 capsule 05/13/18 06/25/18 Unknown Rx Active Meds: Active Medications Ephedrine Sulfate (Ephedrine Sulfate) 10 mg IV Q2M PRN PRN Reason: Hypotension Ampicillin Sodium (Polycillin/Ns 2 Gm/100 Ml) 2 gm in 100 mls @ 100 mls/hr IV ONCE ONE; Protocol Stop: 06/25/18 18:51 Oxytocin/Sodium Chloride (Pitocin/Ns 20 Unit/1000ml Drip) 20 units in 1,000 mls @ 125 mls/hr IV DIRECT PAULINO Ampicillin Sodium (Ampicillin/Ns 1 Gm/50 Ml) 1 gm in 50 mls @ 100 mls/hr IV Q4HR PAULINO; Protocol Sodium Chloride (Nacl 0.9% 1000 Ml) 1,000 mls @ 999 mls/hr IV BOLUS ONE Stop: 06/25/18 19:06 Sodium Chloride (Nacl 0.9% 1000 Ml) 1,000 mls @ 150 mls/hr IV DIRECT PAULINO Terbutaline Sulfate (Brethine) 0.25 mg SUB-Q ONCE PRN PRN Reason: Hyperstimulation/Hypertonicity Review of Systems All systems: negative (decreased movement since yesterday) - Vital Signs Vital signs: Vital Signs Pulse BP 100 H 118/72 06/25/18 14:38 06/25/18 14:38 Temp Pulse Resp BP Pulse Ox 98.9 F 109 H 118/72 93 06/25/18 17:08 06/25/18 15:49 06/25/18 14:38 06/25/18 15:49 - Physical Exam Cardiovascular: Regular rate Lungs: Positive: Clear to auscultation Abdomen: Positive: normal appearance, soft. Negative: distention, tenderness, guarding, rigidity Genitourinary (Female): Positive: normal external genitalia, normal perenium. Negative: perineal/vulvar lesions Vagina: Positive: normal moisture Cervix: Positive: lesion, discharge Uterus: Positive: enlarged. Negative: tender Anus/Rectum: Positive: normal perianal skin Extremities: Positive: normal. Negative: tenderness, edema - Obstetrical Cervical Dilatation: 1.5 Cervical Effacement Percentage: 75 station: -1 Uterine Contraction Frequency (min): Irregular Uterine Contraction Pattern: Regular Uterine Tone Measurement Phase: Resting Uterine Contraction Intensity: Moderate Results Result Diagrams: 06/25/18 18:53 06/25/18 18:53 All other labs normal. Assessment and Plan A: at 39 weeks gestation. Gestational diabetes: poorly controlled. No evidence of vasa previa on ultrasound. GBS unknown. HSV 2 + serology with no history of outbreaks. P: Admit. Low dose Pitocin augmentation of labor. Continuous EFM. GBS prophylaxis. Continue HSV suppression with Valtrex. Discussed with pt. Pitocin augmentation of labor. Patient consented to Pitocin augmentation of labor. Consulted with Dr. James re: this patient and plan of care. Dr. James states to start low dose Pitocin.
[2018-06-25] MEDS ORDERED: NACL 0.9% 1000 ML 1,000 ML IV SCH (19:00)
--- NOTE | 2018-06-25 19:15 | Ultrasound Report ---
FINAL REPORT PROCEDURE: Limited obstetrical ultrasound. TECHNIQUE: Real-time limited sonographic examination was performed for evaluation of size, position, heartbeat, fluid volume for each fetus with image documentation (1 or more fetuses). CPT 55351 HISTORY: Please evaluate for vasa previa. COMPARISON: Obstetrical ultrasound done earlier today. FINDINGS: There is a single viable fetus in cephalic presentation. The cervical length measures 2.4 centimeters. The heart rate is 141 beats per minute. The placenta is anterior in location with no evidence of placenta previa. Transabdominal and transvaginal color-flow imaging was performed. This demonstrates no evidence of color flow signal between the cephalic head and the internal cervical os. IMPRESSION: No evidence of vasa previa.
[2018-06-25 19:29] LABS: Alanine Aminotransferase 9 units/L (7-56); Albumin 3.5 g/dL (3.9-5); BUN/Creatinine Ratio 18; Blood Urea Nitrogen 7 mg/dL (7-17); Calcium 9.2 mg/dL (8.4-10.2); Hemolysis Index 15
[2018-06-25 19:35] LABS: Hematocrit 35.9 % (30.3-42.9); Hemoglobin 11.8 gm/dl (10.1-14.3); Mean Corpuscular HGB Conc 33 % (30-34); Mean Corpuscular Hemoglobin 28 pg (28-32); Mean Corpuscular Volume 86 fl (79-97); Platelet Count 531 K/mm3 (140-440); Red Blood Count 4.18 M/mm3 (3.65-5.03)
[2018-06-25] MEDS ORDERED: PITOCin/NS 30 UNIT/500ML 30 UNITS/500 ML BAG IV SCH (20:00)
[2018-06-25] MEDS ORDERED: VALTREX PO SCH (22:00)
[2018-06-25 22:18] LABS: Bacteria,Urine 4+ /HPF (Negative); Bilirubin,Urine NEG (Negative); Blood,Urine MOD (Negative); Color,Urine Yellow (Yellow); Urobilinogen,Urine < 2.0 mg/dL (<2.0)
[2018-06-25 22:21] LABS: Amphetamine Screen,Urine PRESUMPTIVE NEGATIVE; Benzodiazepines Screen,Urine PRESUMPTIVE NEGATIVE; Cannabinoid Screen,Urine PRESUMPTIVE NEGATIVE; Cocaine Screen,Urine PRESUMPTIVE NEGATIVE; Methadone Screen,Urine PRESUMPTIVE NEGATIVE; Opiate Screen,Urine PRESUMPTIVE NEGATIVE
[2018-06-25] MEDS ORDERED: SUBLIMAZE IV PRN (23:12)
[2018-06-25] MEDS: AMPICILLIN/NS 1 GM/50 ML 1 GM/50 ML BAG IV SCH (23:40)
[2018-06-26] MEDS ORDERED: NARCAN 2 MG/2 ML IV PRN (03:18)
[2018-06-26] MEDS: AMPICILLIN/NS 1 GM/50 ML 1 GM/50 ML BAG IV SCH (03:25)
[2018-06-26] MEDS ORDERED: fentaNYL-BUPIV 2 MCG/ML-0.125% 200 MCG/100 ML BAG EPIDURAL SCH (04:00)
[2018-06-26] MEDS ORDERED: TYLENOL PO ONE (04:37)
--- NOTE | 2018-06-26 04:49 | Event Note ---
Date: 06/26/18 Patient is comfortable since receiving epidural. SVE /-1. Clear amniotic fluid continues to leak from vagina; pt. states she thinks her water has been leaking for 3 days at home. T 98.4. Maternal heart rate 110s and 120s; heart rate baseline 160-165 with accels into 170s-180. Patient is already receiving Ampicillin for GBS unknown status. Orders put in for IV Gentamicin and po Tylenol. Consulted Dr. James about maternal and tachycardia and interventions taken. Will expedite delivery. Dr. James states it is OK to continue to attempt vaginal delivery.
[2018-06-26] MEDS: NACL 0.9% IV SCH ×3 (05:38→21:30)
[2018-06-26] MEDS: GARAMYCIN IV SCH ×3 (05:38→21:30)
--- NOTE | 2018-06-26 06:17 | Event Note ---
Date: 06/26/18 SVE 8/95/0. Pt. feels pressure. Contractions every 2-3 minutes. FHR baseline 150 with moderate variability and accelerations. No decelerations noted. Continue Ampicillin and Gentamicin. Anticipate delivery soon. Patient remains afebrile. Fluid remains clear, no odor noted.
[2018-06-26] MEDS ORDERED: PITOCin/NS 30 UNIT/500ML 30 UNITS/500 ML BAG IV SCH (07:00)
[2018-06-26] MEDS ORDERED: BENADRYL PO PRN (07:42)
[2018-06-26] MEDS ORDERED: MILK OF MAGNESIA PO PRN (07:42)
[2018-06-26] MEDS ORDERED: TUCKS PAD TP PRN (07:42)
[2018-06-26] MEDS ORDERED: LANSINOH TP PRN (07:42)
[2018-06-26] MEDS ORDERED: SODIUM CHLORIDE FLUSH SYRINGE 10 ML IV NR (08:00)
--- NOTE | 2018-06-26 08:03 | Procedure Note ---
OB Delivery Note - Delivery Date of Delivery: 06/26/18 Surgeon: GEOVANNA MADRID Estimated blood loss: 200cc - Vaginal Delivery presentation: vertex Delivery position: OA Intrapartum events: shoulder dystocia, other(please specify) (true knot in cord) Delivery induction: oxytocin Delivery monitor: external FHT, external uterine Route of delivery: Delivery placenta: spontaneous Delivery cord: true knot, 3 umbilical vessels Episiotomy: none Delivery laceration: none Anesthesia: epidural Delivery comments: Spontaneous vaginal delivery of liveborn male infant weighing 3149 grams over intact perineum with apgars of 7/9. Epidural anesthesia. Right anterior shoulder dystocia, resolved with Sharita maneuver, rotation of shoulders to oblique, and delivery of posterior shoulder. True knot in cord; 3 vessel cord double clamped and cut. Baby taken immediately to radiant warmer and NICU team. Spontaneous delivery of intact placenta and membranes; bilobate placenta. Pitocin to IV fluids after delivery of placenta. EBL 200 cc. Fundus firm and midline. Vaginal sweep negative. No lacerations noted. Sponge count correct.
[2018-06-26] MEDS: POLYCILLIN/NS 2 GM/100 ML 2 GM/100 ML BAG IV SCH ×3 (08:06→19:51)
[2018-06-26] MEDS: MOTRIN PO SCH ×3 (08:55→23:18)
[2018-06-26] MEDS: FEOSOL PO SCH ×2 (13:27→21:25)
[2018-06-26] MEDS: COLACE PO SCH ×2 (13:27→21:25)
[2018-06-26] MEDS: NORCO 5/325 PO PRN ×2 (13:34→19:51)
[2018-06-26] MEDS ORDERED: LACTATED RINGERS 1,000 ML IV SCH (17:00)
[2018-06-26 19:33] LABS: Hematocrit 32.5 % (30.3-42.9); Hemoglobin 10.8 gm/dl (10.1-14.3)
[2018-06-27] MEDS: POLYCILLIN/NS 2 GM/100 ML 2 GM/100 ML BAG IV SCH ×4 (01:16→22:46)
[2018-06-27] MEDS: NACL 0.9% IV SCH ×3 (05:22→23:36)
[2018-06-27] MEDS: GARAMYCIN IV SCH ×3 (05:22→23:36)
[2018-06-27] MEDS: MOTRIN PO SCH ×4 (05:23→23:35)
[2018-06-27] MEDS: NORCO 5/325 PO PRN (08:18)
--- NOTE | 2018-06-27 10:07 | Progress Note ---
Assessment and Plan - Patient Problems (1) Status post normal vaginal delivery Current Visit: Yes Status: Acute Plan to address problem: PPD 1 - stable Continue routine PP orders Anticipate discharge in 24 hours (2) Thrombocytosis Current Visit: Yes Status: Acute Plan to address problem: Asymptomatic Platelet count 06/25/18: 531 Repeat CBC today Will initiate Hematology consult, if increasing Subjective - Subjective Date of service: 06/27/18 Principal diagnosis: PPD #1, s/p Patient reports: appetite normal, voiding normally, pain well controlled, ambulating normally [place]: doing well Objective - Vital Signs Latest vital signs: Vital Signs Temp Pulse Resp BP BP Pulse Ox 06/27/18 07:36 97.6 F 76 16 99/57 06/27/18 00:11 97.3 F L 86 18 101/51 98 06/26/18 20:07 98.3 F 94 H 18 110/60 97 06/26/18 19:51 18 06/26/18 18:14 18 06/26/18 16:32 97.9 F 81 18 110/75 98 06/26/18 13:34 18 06/26/18 12:33 98.4 F 89 18 109/66 98 Intake and Output 06/26/18 06/27/18 06/27/18 23:59 07:59 15:59 Intake Total 202.75 220 Balance 202.75 220 Intake: IV 202.75 100 Garamycin 110 mg In NaCl 102.75 0.9% 100 ml @ 200 mls/hr IV Q8H PAULINO Rx#:[id number] POLYCILLIN/NS 2 GM/100 ML 100 100 2 gm In 100 ml @ 100 mls /hr IV Q6H PAULINO Rx#: [id number] Oral 120 Other: Total, Intake Amount 120 - Exam Abdomen: Present: normal appearance Vulva: both: normal Uterus: Present: normal, firm, fundal height at umbilicus Comments: small lochia
[2018-06-27] MEDS: FEOSOL PO SCH ×2 (10:22→22:22)
[2018-06-27] MEDS: COLACE PO SCH ×2 (10:22→22:21)
[2018-06-27 10:51] LABS: Hematocrit 29.3 % (30.3-42.9); Hemoglobin 9.5 gm/dl (10.1-14.3); Mean Corpuscular HGB Conc 32 % (30-34); Mean Corpuscular Hemoglobin 28 pg (28-32); Mean Corpuscular Volume 86 fl (79-97); Platelet Count 406 K/mm3 (140-440); Red Blood Count 3.39 M/mm3 (3.65-5.03); Red Cell Distribution Width 16.2 % (13.2-15.2)
[2018-06-28] MEDS: MOTRIN PO SCH ×4 (02:00→17:13)
[2018-06-28] MEDS: POLYCILLIN/NS 2 GM/100 ML 2 GM/100 ML BAG IV SCH (04:33)
[2018-06-28] MEDS: NORCO 5/325 PO PRN (08:19)
--- NOTE | 2018-06-28 10:15 | Progress Note ---
Assessment and Plan Patient Problems (1) Status post normal vaginal delivery Current Visit: Yes Status: Acute Plan to address problem: PPD 2 - stable Continue routine PP orders Anticipate discharge home today (2) Thrombocytosis Current Visit: Yes Status: Acute Plan to address problem: Asymptomatic Platelet count 06/25/18: 531 Repeat CBC 06/27/18: 406 Subjective - Subjective Date of service: 06/28/18 Principal diagnosis: PPD #2, s/p Interval history: See H&P and delivery note Patient reports: appetite normal, voiding normally, pain well controlled, flatus , ambulating normally : doing well Objective - Vital Signs Latest vital signs: Vital Signs Temp Pulse Resp BP Pulse Ox 06/28/18 08:08 98.1 F 75 18 127/91 100 06/28/18 05:28 16 06/28/18 02:00 18 06/28/18 00:35 18 06/28/18 00:00 98.0 F 83 18 111/64 06/27/18 23:35 16 06/27/18 15:28 97.8 F 75 18 133/88 Intake and Output 06/27/18 06/28/18 06/28/18 23:59 07:59 15:59 Intake Total 200 Balance 200 Intake: IV 200 POLYCILLIN/NS 2 GM/100 ML 200 2 gm In 100 ml @ 100 mls /hr IV Q6H PAULINO Rx#: [id number] Other: # Voids Void 1 - Exam Breasts: Present: normal Cardiovascular: Present: Regular rate, Normal S1, Normal S2, No murmurs Lungs: Present: Clear to auscultation, Normal air movement Abdomen: Present: normal appearance, soft, normal bowel sounds. Absent: distention Vulva: both: normal Uterus: Present: firm, fundal height at umbilicus Extremities: Present: normal Deep Tendon Reflex Grade: Normal +2 - Labs Labs: Abnormal lab results 06/27/18 Range/Units 10:17 WBC 11.4 H (4.5-11.0) K/mm3 RBC 3.39 L (3.65-5.03) M/mm3 Hgb 9.5 L (10.1-14.3) gm/dl Hct 29.3 L (30.3-42.9) % RDW 16.2 H (13.2-15.2) %
--- NOTE | 2018-06-28 10:19 | Discharge Summary ---
Providers - Providers Date of Admission: 06/25/18 14:11 Date of discharge: 06/28/18 Attending physician: SARBJIT LOWERY MD Primary care physician: SARBJIT LOWERY MD Hospitalization Reason for admission: IUP at term Delivery: Procedure details: See H&P and delivery note Episiotomy: none Laceration: none Other procedures: none complications: none Discharge diagnosis: IUP at term delivered Condition at discharge: Good Disposition: DC-[id number] TO HOME OR SELFCARE Plan - Provider Discharge Summary Activity: routine, no sex for 6 weeks, no heavy lifting 4 weeks, no strenuous exercise Diet: routine Instructions: routine Additional instructions: [] Smoking cessation referral if applicable(refer to patient education folder for contact #) [] Refer to [facility]'s [facility] Booklet Call your doctor immediately for: * Fever > 100.5 * Heavy vaginal bleeding ( >1 pad per hour) * Severe persistent headache * Shortness of breath * Reddened, hot, painful area to leg or breast * Drainage or odor from incision. * Keep incision clean and dry at all times and follow doctor's instructions regarding bathing/showering - Follow up plan Follow up: SARBJIT LOWEYR MD [Primary Care Provider] - 6 Weeks
[2018-06-28] MEDS: FEOSOL PO SCH (10:37)
[2018-06-28] MEDS: COLACE PO SCH (10:37)
[2018-06-28 17:01] VITALS: BP 132/80
== END 2018-06-28 18:30 | disposition home or self-care (01) | DRG 774 ==
LOC: TRG 14:10 → LD 14:11 → TRG 14:14 → OB 06-26 09:25
PROVIDERS: ADMIT Obstetrics & Gynecology; ATTEND Obstetrics & Gynecology
PROC: 10E0XZZ Delivery of Products of Conception, External Approach (ICD-10-PCS; principal; 2018-06-26)
PROC: 3E033VJ Introduction of Other Hormone into Peripheral Vein, Percutaneous Approach (ICD-10-PCS; 2018-06-26)
PROC: 3E0R3BZ Introduction of Anesthetic Agent into Spinal Canal, Percutaneous Approach (ICD-10-PCS; 2018-06-26)
PROC: 00HU33Z Insertion of Infusion Device into Spinal Canal, Percutaneous Approach (ICD-10-PCS; 2018-06-26)
DX: O66.0 Obstructed labor due to shoulder dystocia (principal); O98.52 Other viral diseases complicating childbirth; B00.9 Herpesviral infection, unspecified; O24.429 Gestational diabetes mellitus in childbirth, unspecified control; O69.2XX0 Labor and delivery complicated by other cord entanglement, with compression, not applicable or unspecified; O76 Abnormality in fetal heart rate and rhythm complicating labor and delivery; O41.03X0 Oligohydramnios, third trimester, not applicable or unspecified; D47.3 Essential (hemorrhagic) thrombocythemia; O75.89 Other specified complications of labor and delivery; Z83.3 Family history of diabetes mellitus; Z3A.39 39 weeks gestation of pregnancy; Z37.0 Single live birth; Z79.899 Other long term (current) drug therapy
CPT/HCPCS: 36415; 76815; 76819; 80053; 80307; 81001; 82962; 83036; 85014; 85018; 85027; 86592; 86850; 86900; 86901; 87591; 88307; J0290; J1580; J2590; J3010; J7030; J7120